=== PATIENT | male | born 1940 | race African-American/Black ===

== ENCOUNTER 2019-03-09 18:16 | Emergency (ER) | payer OTHER ==
[~2019-03-09] VITALS: Ht 180.3 cm; Wt 76.8 kg
[2019-03-09 19:21] LABS: BASOPHILS % 0.7 % (0.0-2.0); EOSINOPHILS % 4.7 % (0.0-5.0); HEMATOCRIT. 39.4 % (42.0-52.0); LYMPHOCYTES % 28.5 % (20.0-50.0); MEAN CORPUSCULAR HEMOGLOBIN 31.5 pg (28.0-32.0); MONOCYTES % 10.3 % (2.0-8.0); NEUTROPHILS % 55.8 % (40.0-76.0); PLATELET 300 x1000/uL (130-400); RED BLOOD CELL COUNT 4.14 mill/uL (4.7-6.1); RED CELL DISTRIBUTION WIDTH 14.1 % (11.6-14.6)
[2019-03-09 19:25] LABS: CHLORIDE 106 mEq/L (98-107)
[2019-03-09 19:26] LABS: PROTHROMBIN TIME 10.3 sec (9.6-11.0)
[2019-03-09 19:30] LABS: ETHANOL BLOOD < 10 mg/dL
[2019-03-09 19:33] LABS: LDL CHOLESTEROL 62 mg/dL (5-100)
[2019-03-09] MEDS: SODIUM CHLORIDE 0.9% 500 ML IV ONE (20:00)
[2019-03-09 20:34] LABS: CLARITY URINE CLEAR (CLEAR); COLOR URINE YELLOW (YELLOW); KETONES URINE NEGATIVE (NEGATIVE); LEUKOCYTE ESTERASE URINE NEGATIVE (NEGATIVE); NITRITE URINE NEGATIVE (NEGATIVE); OCCULT BLOOD URINE TRACE (NEGATIVE); PH URINE 7.5 (4.5-8.0); PROTEIN URINE 1+ (NEGATIVE); SPECIFIC GRAVITY URINE 1.012 (1.005-1.030); UROBILINOGEN URINE 0.2 E.U./dL (0.2-1.0)
[2019-03-09 21:05] LABS: *AMPHETAMINES SCREEN URINE NEGATIVE (NEGATIVE); *BARBITURATES SCREEN URINE NEGATIVE (NEGATIVE); *BENZODIAZEPINES SCREEN URINE NEGATIVE (NEGATIVE)
[2019-03-09 21:06] LABS: *COCAINE SCREEN URINE NEGATIVE (NEGATIVE); CANNABINOID URINE SCREEN NEGATIVE (NEGATIVE); METHADONE URINE SCREEN NEGATIVE (NEGATIVE); OPIATES URINE SCREEN NEGATIVE (NEGATIVE); PHENCYCLIDINE URINE SCREEN NEGATIVE (NEGATIVE)
[2019-03-09] MEDS: ATORVASTATIN CALCIUM 40MG TABLET PO ONE (21:31)
[2019-03-09] MEDS: ASPIRIN 325MG EC TABLET PO ONE (21:31)
[2019-03-09] MEDS ORDERED: IOHEXOL-350 100 ML BOTTLE ONE (21:50)
[2019-03-10 00:45] VITALS: BP 172/89
== END 2019-03-10 00:50 | disposition short-term general hospital (02) ==
LOC: ER 18:16 → CANBEDREQ 03-10 06:15
DX: I63.9 Cerebral infarction, unspecified (principal); N28.9 Disorder of kidney and ureter, unspecified; E11.9 Type 2 diabetes mellitus without complications; I10 Essential (primary) hypertension; Z86.73 Personal history of transient ischemic attack (TIA), and cerebral infarction without residual deficits
CPT/HCPCS: 36415; 70450; 70496; 71045; 80053; 80305; 80320; 81003; 82962; 83721; 84484; 85025; 85610; 93005; 99291; J7030; Q9967; G0480